=== PATIENT | female | born 1990 | race Caucasian/White ===

== ENCOUNTER → 2023-11-08 | Outpatient (CLI) | payer SELFPAY | LOC: LAB 07:46 | DX: E28.8 Other ovarian dysfunction (principal); R53.83 Other fatigue ==

== ENCOUNTER → 2024-01-06 | Outpatient (CLI) | payer SELFPAY ==
[2024-01-06 10:28] LABS: ALBUMIN 4.5 g/dL (3.5-5.0)
[2024-01-06 10:29] LABS: CALCIUM 9.3 mg/dL (8.3-10.5)
[2024-01-06 10:31] LABS: TOTAL PROTEIN 7.5 g/dL (6.4-8.3)
[2024-01-06 10:33] LABS: TOTAL BILIRUBIN 0.5 mg/dL (0.2-1.2)
[2024-01-06 10:44] LABS: BASO # 0.02 K/mm3 (0.02-0.10); HEMATOCRIT 41.8 % (37.0-47.0); HEMOGLOBIN 13.5 g/dL (12.5-16.0); LYMPH# 1.76 K/mm3 (1.50-4.00); MEAN CELL VOLUME 92 fl (78-100); MEAN CORPUSCULAR HEMOGLOBIN 30 pg (27-31); MEAN CORPUSCULAR HGB CONC 32 g/dL (33-37); MEAN PLATELET VOLUME 9.6 fl (7.4-10.4); MONO # 0.37 K/mm3 (0.20-0.80); NEU # 5.26 K/mm3 (1.40-6.50); PLATELET COUNT 306 K/mm3 (130-400); RED BLOOD COUNT 4.57 M/mm3 (4.10-5.30); RED CELL DISTRIBUTION WIDTH 12.9 % (11.5-14.5); WHITE BLOOD COUNT 7.4 K/mm3 (4.8-10.8)
[2024-01-06 23:41] LABS: T3 FREE 2.8 pg/mL (1.7-3.7)
== END ==
LOC: LAB 10:06
PROVIDERS: Family Medicine
DX: E78.5 Hyperlipidemia, unspecified (principal); I10 Essential (primary) hypertension; E03.9 Hypothyroidism, unspecified; E55.9 Vitamin D deficiency, unspecified

== ENCOUNTER → 2024-03-10 | Outpatient (CLI) | payer SELFPAY | LOC: LAB 07:27 | DX: Z33.1 Pregnant state, incidental (principal) ==

== ENCOUNTER → 2024-03-12 | Outpatient (CLI) | payer SELFPAY ==
[2024-03-13 00:13] LABS: ESTRADIOL 96 pg/mL (()); FOLLICLE STIMULATING HORMONE 0.1 mIU/mL (()); LUTENIZING HORMONE <0.1 mIU/mL (()); PROGESTERONE 14.8 ng/mL (())
== END ==
LOC: LAB 11:36
PROVIDERS: Family Medicine
DX: Z33.1 Pregnant state, incidental (principal)